=== PATIENT | female | born 1970 | race Two or more races ===

== ENCOUNTER 2025-03-17 14:35 | Emergency (ER) | payer OTHER ==
[~2025-03-17] VITALS: Ht 165.1 cm; Wt 79.8 kg
[2025-03-17] MEDS ORDERED: COSOPT PF EYE1 EACH (15:23)
[2025-03-17] MEDS ORDERED: RESTASIS1 EACH OP (15:23)
[2025-03-17] MEDS ORDERED: KETOROLAC TROMETHAMINE 30 MG VIAL IM STA (15:35)
[2025-03-17] MEDS ORDERED: ORPHENADRINE CITRATE 30 MG/ML AMPUL IM STA (15:35)
[2025-03-17] MEDS ORDERED: DEXAMETHASONE SODIUM PHOSPHATE 4 MG/ML VIAL IM STA (15:36)
== END 2025-03-17 19:37 | disposition home or self-care (01) ==
LOC: ER 14:35
DX: M54.2 Cervicalgia (principal); S49.80XA Other specified injuries of shoulder and upper arm, unspecified arm, initial encounter; V49.9XXA Car occupant (driver) (passenger) injured in unspecified traffic accident, initial encounter; Y93.89 Activity, other specified; Y92.413 State road as the place of occurrence of the external cause